=== PATIENT | female | born 1970 | race Caucasian/White ===

== ENCOUNTER → 2018-06-02 | Day surgery (SDC) | payer OTHER ==
[~2018-06-02] MED LIST: CLONAZEPAM1 M1 PO; METROPOLOL PO; WELLBUTRIN XL300 MG PO
== END | disposition home or self-care (01) ==
LOC: ADM 05-30 07:30 → CIR.AMB 06:10
DX: N39.3 Stress incontinence (female) (male) (principal)
CPT/HCPCS: 57288; C1771

== ENCOUNTER 2020-02-27 | Outpatient (CLI) | payer OTHER | END 2020-02-27 16:11 | disposition home or self-care (01) | LOC: PPH VACUNA | DX: Z23 Encounter for immunization (principal) ==